=== PATIENT | male | born 1960 | race Caucasian/White ===

== ENCOUNTER 2021-01-13 11:00 | Outpatient (RCR) | payer BC, SELFPAY ==
--- NOTE | 2020-11-26 16:41 | HP.PTEVAL ---
Patient's Visit Information DANNA REED is a 60 year old M referred to Physical Therapy by JONO MEHTA with a diagnosis of LOW BACK PAIN, DDD, SPONDYLOLISTHESIS AND RADICULOPATHY. Date of Evaluation: 11/26/20 Physical Therapist: Whitley Colon PT, Cert MDT - Visit Plan Frequency: 3x /Week Duration: 6 Weeks Plan: *NEUTRAL SPINE*. AQUATIC THERAPY FOR PAIN RELIEF, POSTURE CORRECTION/STRENGTHENING, INSTRUCTION IN APPROPRIATE BODY MECHANICS AND ACTIVITY MODIFICATIONS. DLS WITH A NEUTRAL SPINE TOLERATED. NATE LE ROM, STRETCHING AND STRENGTHENING. HEP INSTRUCTION. - Subjective Work/Leisure: [employer]ARN[employer]. Disability: NO. Present symptoms: LOW BACK PAIN AND RIGHT HIP PAIN. PATIENT DENIES NATE LE NUMBNESS OR TINGLING. Present since: COUPLE YEARS. Pain Scale: WORST 6/10, LEAST 1/10. Currently: 06/08. Commenced as a result of: NO APPARENT REASON. Symptoms at onset: LOW BACK. Worse: BENDING OR LEANING OVER. STANDING. FIRST THING IN THE MORNING. HAS TO HOLD ON TO THINGS TO GET TO THE BATHROOM IN THE MORNING. HAS TO HOLD ON TO THE COUNTER TO BRUSH TEETH. DIFFICULT AND PAINFUL TO WASH FEET IN SHOWER. Better: SITTING. Disturbed sleep: OCCASSIONALY WAKE UP WITH IT AND SOMETIMES GETS A SHARP PAIN ROLLING OVER. USES HEAD BOARD TO MINIMIZE PAIN ROLLING OVER IN BED. Previous history/Previous treatment: NO BACK SURGERY. NO HIP SX. NO LEANNE'S. NO CHIROPRACTOR. NO PHYSICAL THERAPY. NO PRESCRIPTION MEDICATIONS. HAS SEEN PCP AND PA AND [facility]. Coughing/sneezing/straining: POSITIVE. Gait: OCCASSIONALLY REPORTS A SLIGHT R LE LIMP. Difficulty initiating urinatin: NO. Accidents: 6-8 MONTHS AGO DID SLIP AND FALL ON STEPS LANDING ON BUTT AND SLID DOWN STAIRS - MADE IT WORSE. ABOUT 10 DAYS AGO SLIPED ON RAMP AND FELL ON RIGHT SIDE AND ACTUALLY FELT SOME IMPROVEMENT IN SX'S AFTER THAT. Unexplained weight loss: NO. Imaging: RECENT LOW BACK X-RAYS AT [facility] - DDD, SCOLIOSIS AND ARTHRITIS PER PATIENT REPORT. PELVIC, HIP AND BACK X-RAYS ABOUT A YEAR AGO ONLY SHOWED MILD LUMBAR ARTHRITS PER PATIENT REPORT. PMH/Recent major surgery: HTN. OTHER: SHARP STABBING BACK PAIN IF MOVES WRONG AND AFRAID HE IS CAUSING DAMAGE. - Objective Sitting/Standing Posture: POOR. Lordosis: INCREASED. Lateral shift: NO. Relevant shift: N/A. Active Correction of posture: BETTER. Other Observations: INDEP GAIT INTO PT WITHOUT ANY AD'S, LOB OR GROSS DEVIATIONS NOTED. INDEP TRANSFER SIT TO STAND WITHOUT UE ASSIST BUT DIFFICULT. Motor deficit: NATE HIP WEAKNESS L > RIGHT. L HIP 3/5, R HIP 3+/5. NATE KNEE FLEX/EXT 5/5, NATE ANKLE DORSIFLEX 5/5. Sensory deficit: NATE LE LIGHT TOUCH SENSATION INTACT AND SYMMETRICAL. ROM deficit: VERY TIGHT NATE HIP FLEXORS, HS'S AND GASTROC SOLEUS COMPLEX'S. Reflexes: NT. Dural Signs: POSITIVE LLE. Lumbar mvmt loss: flex - MIN. ext - VICKI. R SG - MOD. L SG - MOD TO VICKI. PATIENT C/O INCREASED BACK PAIN WITH LUMBAR EXT ROM TESTING AND INCRASED R HIP PAIN WITH L SG TESTING. Core strength: POOR. TREATMENT: NEUROMUSCULAR REEDUCATION - RETRAINING OF MVMT AND POSTURE FOR SITTING, LYING AND STANDING ACTIVITIES. - Goals Goal 1:: DECREASE C/O LOW BACK AND NATE LE SX'S Goal Time Frame: 4-6 Weeks Goal 2:: IMPROVE LIFTING, ADL, STANDING, AND WORK/HOMEMAKING FUNCTION Goal Time Frame: 4-6 Weeks Goal 3:: INSTRUCT IN PROPHYLAXIS Goal Time Frame: 4-6 Weeks - Anticipated Interventions Patient/Client Instruction: Educate patient on: Condition, Plan of Care, Risk Factors For the Purpose of:: To improve self management Therapeutic Exercise to Include: Strength training, Body mechanics, Postural training, Flexibilty training, Neuromotor development, In an aquatic setting, Dynamic Lumbar Stabilization For the Purpose of:: To decrease pain, To improve muscle performance and motor function, To increase tolerance to activity/condition/position, To improve ability of physical actions for home/community/work/leisure Thank you for the opportunity to evaluate your patient. For Medicare and Medicare HMO plans, please review the plan of care and approve it. It will need to be FAXED BACK to us at [phone] for Medicare purposes. For Medicare only, by signing this I certify the plan of care. Please let me know if there are questions or concerns regarding this plan of care. Physician Signature: Date:
--- NOTE | 2020-12-22 16:55 | HP.PTREVAL ---
JONO MEHTA, It has been my pleasure to treat DANNA REED over the last 8 visits for LOW BACK PAIN, DDD, SPONDYLOLISTHESIS AND RADICULOPATHY. Please see the progress note below for an update on the physical therapy plan of care! Subjective: PATIENT REPORTS HIS CONSISTANT BACK PAIN IS NOT THERE ANYMORE BUT STILL HAVING OCCASSIONAL R HIP PAIN. BACK PAIN IS BETTER. RIGHT HIP PAIN IS ABOUT THE SAME. PATIENT REPORTS HE CAN BEND OVER BETTER NOW. IT USE TO BE THAT HE HAD TO HANG ON TO HUA AND COUNTER TOPS TO WALK AROUND IN THE MORNINGS AND NOW HE DOESN'T HAVE TO. PATIENT RELATES HIS IMPROVEMENT TO PT AND WOULD LIKE TO CONTINUE PER POC IN THE POOL. PATIENT REPORTS HE JUST TOLD HIS TODAY THAT THIS IS THE BEST HER HAS FELT IN ABOUT 2 YEARS. Objective/Function: PATIENT WAS SEEN TODAY FOR RE-ASSESSMENT OF PROGRESS TOWARD THE SET PT GOALS AND THE NEED FOR FURTHER PHYSICAL THERAPY VS READINESS FOR DISCHARGE. PATIENT WANTS TO CONTINUE AQUATIC THERAPY AND IS A GOOD CANDIDATE TO CONTINUE AQUATIC THERAPY BASED ON PROGRESS MADE AND ROOM FOR FURTHER IMRPOVEMENT. UPON EXAM TODAY PATIENT IS DEMO'ING IMPROVED SIT TO STAND, IMPROVED CORE (BUT STILL VERY WEAK) AND IMPROVED NATE HIP STRENGTH ALONG WITH REPORTING DECREASED PAIN. INDEP GAIT INTO PT WITHOUT ANY AD'S, LOB OR GROSS DEVIATIONS NOTED. INDEP TRANSFER SIT TO STAND WITHOUT UE ASSIST BUT DIFFICULT. Motor deficit: NATE HIP WEAKNESS L > RIGHT. L HIP 4-/5, R HIP 4/5. NATE KNEE FLEX/EXT 5/5, NATE ANKLE DORSIFLEX 5/5. Sensory deficit: NATE LE LIGHT TOUCH SENSATION INTACT AND SYMMETRICAL. ROM deficit: VERY TIGHT NATE HIP FLEXORS, HS'S AND GASTROC SOLEUS COMPLEX'S. Reflexes: NT. Dural Signs: NEGATIVE NATE LE'S. Lumbar mvmt loss: flex - NIL. ext - VICKI. R SG - MOD. L SG - MIN. PATIENT DENIES INCREASED PAIN WITH LUMBAR ROM TESTING ALL PLANES BUT FELT SOME DISCOMFORT IN RIGHT HIP WITH LSG TESTING. Core strength: POOR Plan Plan: *NEUTRAL SPINE*. CONTINUE. AQUATIC THERAPY FOR PAIN RELIEF, POSTURE CORRECTION/STRENGTHENING, INSTRUCTION IN APPROPRIATE BODY MECHANICS AND ACTIVITY MODIFICATIONS. DLS WITH A NEUTRAL SPINE TOLERATED. NATE LE ROM, STRETCHING AND STRENGTHENING. HEP INSTRUCTION. Balance/Gait/Functional tests - Balance/Special Test Scores Oswestry Low Back Score: 2 Goals Goal 1:: DECREASE C/O LOW BACK AND NATE LE SX'S Goal Time Frame: 4-6 Weeks Goal Progress: Progressing Goal 2:: IMPROVE LIFTING, ADL, STANDING, AND WORK/HOMEMAKING FUNCTION Goal Time Frame: 4-6 Weeks Goal Progress: Progressing Goal 3:: INSTRUCT IN PROPHYLAXIS Goal Time Frame: 4-6 Weeks Goal Progress: Progressing Anticipated Interventions Patient/Client Instruction: Educate patient on: Condition, Plan of Care, Risk Factors For the Purpose of:: To improve self management Therapeutic Exercise to Include: Strength training, Body mechanics, Postural training, Flexibilty training, Neuromotor development, In an aquatic setting, Dynamic Lumbar Stabilization For the Purpose of:: To decrease pain, To improve muscle performance and motor function, To increase tolerance to activity/condition/position, To improve ability of physical actions for home/community/work/leisure Please do not hesitate to contact me at [phone] by phone or if you have questions or concerns regarding this new plan of care! Sincerely, Whitley Colon, PT, Cert MDT
--- NOTE | 2021-01-13 11:29 | HP.PTDCSUM ---
It has been my pleasure to treat DANNA REED referred by JONO MEHTA, with the diagnosis of LOW BACK PAIN, DDD, SPONDYLOLISTHESIS AND RADICULOPATHY for a total of 16 visit(s). Discharge Date: 01/13/21 Please see the following information for a summary of their discharge status. Subjective: PATIENT REPORTS HE DOESN'T HAVE ANY PAINS IN HIS BACK ANYMORE. STATES ONLY OCCASSIONAL RIGHT HIP PAIN NOW - RARE. PATIENT REPORTS HE IS READY TO BE DONE WITH AQUATIC THERAPY AND JUST HAS A FEW QUESTIONS ABOUT HIS HEP. PATIENT REPORTS HE WANTS TO STOP PT RIGHT NOW BECAUSE HE IS GOING TO RETIRE AND TIME, MONEY AND LOCATION ARE ALL FACTORS FOR HIM. R hip Pain Intensity (Out of 10): 0 % Improvement: 90 Objective/Function: PATIENT WAS SEEN TODAY FOR RE-ASSESSMENT OF PROGRESS TOWARD THE SET PT GOALS AND THE NEED FOR FURTHER PHYSICAL THERAPY VS READINESS FOR DISCHARGE. ALL GOALS HAVE BEEN MET AND PATIENT IS APPROPRIATE FOR AND AGREEABLE TO D/C. UPON EXAM TODAY. INDEP GAIT INTO PT WITHOUT ANY AD'S, LOB OR GROSS DEVIATIONS NOTED. INDEP TRANSFER SIT TO STAND WITHOUT UE ASSIST AND WITH EASE. Motor deficit: NATE HIP WEAKNESS 4/5 NATE KNEE FLEX/EXT 5/5, NATE ANKLE DORSIFLEX 5/5. Sensory deficit: NATE LE LIGHT TOUCH SENSATION INTACT AND SYMMETRICAL. ROM deficit: VERY TIGHT NATE HIP FLEXORS, HS'S AND GASTROC SOLEUS COMPLEX'S. Reflexes: NT. Dural Signs: NEGATIVE NATE LE'S. Lumbar mvmt loss: flex - NIL. ext - MOD. R SG - MOD. L SG - MIN. PATIENT DENIES INCREASED PAIN WITH LUMBAR ROM TESTING ALL PLANES IN BACK AND NO HIIP PAIN. Core strength: POOR Goal 1:: DECREASE C/O LOW BACK AND NATE LE SX'S Goal Progress: Goal Met Goal 2:: IMPROVE LIFTING, ADL, STANDING, AND WORK/HOMEMAKING FUNCTION Goal Progress: Goal Met Goal 3:: INSTRUCT IN PROPHYLAXIS Goal Progress: Goal Met Plan: D/C TO HEP FOR NOW AT PATIENTS REQUEST BUT THIS PT STRONGLY RECOMMENDS CONTINUED AQUATIC THERAPY FOR LE TIGHTNESS AND CORE WEAKNESS OR TRANSITION TO LAND BASED PT. If there are questions or concerns regarding this patient's physical therapy, please feel free to call me at [phone]. Thank you for the referral of this patient. Sincerely, Whitley Colon, PT, Cert MDT Balance/Gait/Functional tests - Balance/Special Test Scores Oswestry Low Back Score: 0
== END 2021-01-13 14:27 | disposition home or self-care (01) ==
LOC: PT 11:00
PROVIDERS: PCP Internal Medicine
DX: M43.16 Spondylolisthesis, lumbar region (principal); M51.16 Intervertebral disc disorders with radiculopathy, lumbar region
CPT/HCPCS: 97112; 97113; 97162; 97164